=== PATIENT | male | born 1940 | race Caucasian/White ===

== ENCOUNTER 2016-04-10 08:58 | Outpatient (CLI) ==
[2016-04-10 09:20] LABS: HEMATOCRIT 33.5 % (42.0-52.0); HEMOGLOBIN 10.9 g/dl (14.0-18.0); MEAN CORPUSCULAR HGB CONC 32.5 (31.8-35.4); MEAN CORPUSCULAR VOLUME 92.3 fl (80.0-94.0); RED BLOOD COUNT 3.63 10^6/ul (4.70-6.10); WHITE BLOOD COUNT 6.74 K/ul (4.2-10.2)
[2016-04-10 09:38] LABS: BILIRUBIN,URINE Negative (NEGATIVE); KETONES,URINE Negative (NEGATIVE); LEUKOCYTE ESTERASE ,URINE Negative (NEGATIVE); NITRITE,URINE Negative (NEGATIVE); PH,URINE 5.5 (5-9); PROTEIN,URINE Negative (NEGATIVE); URINE, BLOOD Negative (NEGATIVE)
[2016-04-10 09:49] LABS: ADD URINE MICROSCOPIC NO
[2016-04-10 10:19] LABS: ALBUMIN 3.7 g/dL (3.4-5.0); ANION GAP 13.1; BUN/CREATININE RATIO 18.27; CALCIUM 9.3 mg/dL (8.2-10.2); CREATININE 1.86 mg/dL (0.60-1.10); FERRITIN 112.17 ng/mL (21.81-274.66); FOLATE 16.3 ng/mL (3.1-20.5); MAGNESIUM 2.3 mg/dL (1.7-2.2); PHOSPHORUS 3.5 mg/dL (2.3-3.7); POTASSIUM 4.1 mmol/L (3.5-5.1); URIC ACID 5.2 mg/dL (2.6-7.2)
[2016-04-11 07:24] LABS: VITAMIN D25 33.5 ng/mL (30.0-100.0)
[2016-04-11 09:37] LABS: URINE CREATINE 102.6 mg/dL (Not Estab.)
== END 2016-04-10 08:59 | disposition home or self-care (01) ==
LOC: LAB 08:58
PROVIDERS: ATTEND Internal Medicine Nephrology
DX: N18.3 Chronic kidney disease, stage 3 (moderate) (principal); D63.1 Anemia in chronic kidney disease; I10 Essential (primary) hypertension
CPT/HCPCS: 36415; 80069; 81001; 82306; 82570; 82607; 82728; 82746; 83540; 83550; 83735; 83970; 84156; 84550; 85027

== ENCOUNTER 2016-06-25 08:35 | Outpatient (CLI) ==
--- NOTE | 2016-06-25 09:13 | DI ---
EXAM: Radiographs, lumbar spine HISTORY: Chronic low back pain. COMPARISON: MRI 08/29/2009. TECHNIQUE: Five views. FINDINGS: Moderate right convex curvature centered near L3 noted. Alignment is grossly normal. Pr evertebral body heights are maintained. Moderate loss of disc height seen at L2-3 and L3-4. Multil evel endplate osteophyte formation is greatest at these levels. Multilevel facet arthropathy is at least moderate. No fracture or subluxation identified. Sacral arcuate lines are intact. Atheroscl erotic calcifications are present. Since the prior study of degenerative changes may be worsened. IMPRESSION: 1. At least moderate multilevel degenerative changes. 2. Right convex midlumbar curvature.
== END 2016-06-25 08:36 | disposition home or self-care (01) ==
LOC: RAD 08:35
PROVIDERS: ATTEND Internal Medicine Rheumatology
DX: M54.5 Low back pain (principal)

== ENCOUNTER 2016-09-17 09:30 | Outpatient (CLI) ==
--- NOTE | 2016-09-18 10:14 | MRI ---
EXAM: Lumbar spine MRI without contrast. HISTORY: Lumbosacral stenosis. COMPARISON: Lumbar spine radiographs 06/25/2016. TECHNIQUE: Multiplanar, multisequence MR images were acquired of the lumbar spine without contrast. FINDINGS: Five lumbar-type vertebra are present. There is 26 degrees lumbar dextroscoliosis center ed at L3-4 and straightening of the usual lumbar lordosis. There is mild chronic anterior wedging o f the A1 vertebra that is considered developmental. Intrinsic bone marrow signal is heterogeneous. Ventral and lateral osteophytes are present in the lumbar spine. There is desiccation of the inter vertebral discs from L1-2 to L4-5. There is mild irregular concavity of the endplates from L1-2 to L4-5 and there is minor anterior disc space narrowing at L1. At L2-3, there is osteophytosis that i s asymmetric to the right with moderate anterior and right lateral disc space narrowing. At L3-4, t here is osteophytosis that is asymmetric to the left with moderate to marked disc space narrowing le ft laterally and mild left lateral degenerative endplate changes. Vacuum phenomenon is present at L 4-5. Conus medullaris ends at T12-L1 and has normal signal intensity. Canal diameter is developmen tally narrow due to congenitally short pedicles. The partially visualized kidneys are unremarkable. 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 L1-2: There is a diffuse disc bulge that is asymmetric to the right and mild to moderate right and mild left hypertrophic facet arthropathy and ligamentum flavum hypertrophy. In this patient with a developmentally narrow canal, these findings cause mild to moderate spinal stenosis, severe right la teral recess stenosis and mild to moderate left and moderately severe right neural foraminal stenosi s. The AP diameter of the thecal sac is 7 mm. L2-3: There is a diffuse disc bulge and mild to moderate left and mild right hypertrophic facet art hropathy and ligamentum flavum hypertrophy. This causes mild spinal stenosis, and severe left later al recess stenosis with encroachment on the left L3 nerve roots and mild to moderate right and sever e left foraminal stenosis with encroachment on the traversing left L2 nerve. L3-4: There is a diffuse disc bulge that is asymmetric to the left with left lateral/far endplate o steophytes that encroach on the exiting left L3 nerve. Moderate bilateral hypertrophic facet arthro aaliyah and ligamentum flavum hypertrophy is present. These findings cause moderately severe spinal s tenosis, or bilateral lateral recess stenosis where there may be encroachment on the L4 nerve roots and mild to moderate right and marked left neural foraminal stenosis. L4-5: There is a diffuse disc bulge and moderately severe bilateral hypertrophic facet arthropathy and ligamentum flavum hypertrophy. A small synovial cyst is present along the anteromedial left fac et joint. There is severe spinal stenosis and severe left and moderately severe right neural forami nal stenosis with encroachment both L4 nerves. L5-S1: There is a minor disc bulge that is asymmetric to the right with moderate right far lateral endplate osteophytes that encroach on the exiting right L5 nerve. Moderate right and mild left hype rtrophic facet arthropathy is present. There is right lateral recess stenosis with encroachment on the right S1 nerve roots and mild to moderate right neural foraminal stenosis. IMPRESSION: 1. Moderately extensive lumbar degenerative spondylosis which in this patient with a developmentall y narrow canal causes mild to moderate L1-2, mild L2-3, moderately severe L3-4 and severe L4-5 central canal stenos is. 2. Multilevel high-grade foraminal stenosis.
== END 2016-09-17 09:31 | disposition home or self-care (01) ==
LOC: RAD 09:30
PROVIDERS: ATTEND Internal Medicine Rheumatology
DX: M48.07 Spinal stenosis, lumbosacral region (principal)

== ENCOUNTER 2016-10-14 09:25 | Outpatient (CLI) ==
[2016-10-14 09:49] LABS: HEMATOCRIT 32.5 % (42.0-52.0); HEMOGLOBIN 10.9 g/dl (14.0-18.0); MEAN CORPUSCULAR HEMOGLOBIN 31.1 pg (27.0-31.0); MEAN CORPUSCULAR HGB CONC 33.5 (31.8-35.4); MEAN CORPUSCULAR VOLUME 92.6 fl (80.0-94.0); RED BLOOD COUNT 3.51 10^6/ul (4.70-6.10); WHITE BLOOD COUNT 7.88 K/ul (4.2-10.2)
[2016-10-14 10:01] LABS: BILIRUBIN,URINE Negative (NEGATIVE); KETONES,URINE Negative (NEGATIVE); LEUKOCYTE ESTERASE ,URINE Negative (NEGATIVE); NITRITE,URINE Negative (NEGATIVE); PH,URINE 6.5 (5-9); PROTEIN,URINE Negative (NEGATIVE); URINE, BLOOD Negative (NEGATIVE)
[2016-10-14 10:02] LABS: ADD URINE MICROSCOPIC NO
[2016-10-14 10:31] LABS: ALBUMIN 3.8 g/dL (3.4-5.0); ANION GAP 16.8; BUN/CREATININE RATIO 17.43; CALCIUM 9.4 mg/dL (8.2-10.2); CREATININE 1.95 mg/dL (0.60-1.10); MAGNESIUM 2.2 mg/dL (1.7-2.2); PHOSPHORUS 3.6 mg/dL (2.3-3.7); POTASSIUM 4.8 mmol/L (3.5-5.1); URIC ACID 6.2 mg/dL (2.6-7.2)
[2016-10-15 06:10] LABS: URINE CREATINE 112.7 mg/dL (Not Estab.)
== END 2016-10-14 09:26 | disposition home or self-care (01) ==
LOC: LAB 09:25
PROVIDERS: ATTEND Internal Medicine Nephrology
DX: N18.3 Chronic kidney disease, stage 3 (moderate) (principal); I10 Essential (primary) hypertension
CPT/HCPCS: 36415; 80069; 81001; 82306; 82570; 83735; 83970; 84156; 84550; 85027

== ENCOUNTER 2017-04-15 09:20 | Outpatient (CLI) | END 2017-04-15 09:21 | disposition home or self-care (01) | LOC: LAB 09:20 | PROVIDERS: ATTEND Internal Medicine Nephrology | DX: N18.3 Chronic kidney disease, stage 3 (moderate) (principal); E55.9 Vitamin D deficiency, unspecified; I10 Essential (primary) hypertension | CPT/HCPCS: 36415; 80069; 81001; 82306; 82570; 83735; 83970; 84156; 84550; 85027 ==

== ENCOUNTER 2017-10-13 09:04 | Outpatient (CLI) | END 2017-10-13 09:05 | disposition home or self-care (01) | LOC: LAB 09:04 | PROVIDERS: ATTEND Internal Medicine Nephrology | DX: N18.3 Chronic kidney disease, stage 3 (moderate) (principal); E55.9 Vitamin D deficiency, unspecified; I10 Essential (primary) hypertension | CPT/HCPCS: 36415; 80069; 81001; 82306; 82570; 83735; 83970; 84156; 84550; 85027 ==

== ENCOUNTER 2018-01-02 08:53 | Outpatient (CLI) | END 2018-01-02 08:54 | disposition home or self-care (01) | LOC: LAB 08:53 | PROVIDERS: ATTEND Internal Medicine Nephrology | DX: N18.4 Chronic kidney disease, stage 4 (severe) (principal); E55.9 Vitamin D deficiency, unspecified; I10 Essential (primary) hypertension | CPT/HCPCS: 36415; 80069; 81001; 82306; 82570; 83735; 83970; 84156; 84550; 85027 ==

== ENCOUNTER 2018-07-03 08:41 | Outpatient (CLI) | END 2018-07-03 08:42 | disposition home or self-care (01) | LOC: LAB 08:41 | PROVIDERS: ATTEND Internal Medicine Nephrology | DX: N18.3 Chronic kidney disease, stage 3 (moderate) (principal); I10 Essential (primary) hypertension | CPT/HCPCS: 36415; 80069; 81001; 82306; 82570; 83735; 83970; 84156; 84550; 85027 ==